=== PATIENT | female | born 1995 | race American Indian/Alaskan Native ===

== ENCOUNTER 2020-09-17 22:03 | Emergency (ER) | payer SELFPAY ==
[2020-09-17] MEDS ORDERED: KETOROLAC 30 MG/1 ML INJ IV ONE (22:40)
[2020-09-17] MEDS ORDERED: ONDANSETRON 4 MG/2 ML INJ IV ONE (22:40)
--- NOTE | 2020-09-17 22:46 | Event Note ---
ED Screening Note Date of service: 09/17/20 Time: 22:30 ED Screening Note: Patient is a A0 25-year-old -H[place] female with no past medical history presents to the ED with complaint of acute onset persistent severe diffuse low abdominal pain with nausea for the last 12 hours. Patient states that she has been taking [id number] medication with no relief. Patient states that the pain is crampy, sharp and constant. Patient states that her LMP was August 11, 2020 and that she has not had her menstrual cycle in September although she states that menstrual cycle is usually irregular ever since she stopped using contraceptives 3 months ago. Patient denies dizziness, syncope, vaginal bleeding, vaginal discharge, dysuria, urinary frequency and urgency, fever, chills, dyspareunia, low back pain, chest pain and shortness of breath or diarrhea and vomiting. This initial assessment/diagnostic orders/clinical plan/treatment(s) is/are subject to change based on patients health status, clinical progression and re- assessment by fellow clinical providers in the ED. Further treatment and workup at subsequent clinical providers discretion. Patient/guardian urged not to elope from the ED as their condition may be serious if not clinically assessed and managed. Initial orders include: CBC, CMP, UA, hCG serum, lipase, CT abdomen pelvis with contrast
[2020-09-17 23:38] LABS: Basophils # (Auto) 0.1 K/mm3 (0.0-0.1); Basophils % (Auto) 0.8 % (0.0-1.8); Eosinophils # (Auto) 0.3 K/mm3 (0.0-0.4); Eosinophils % (Auto) 3.7 % (0.0-4.3); Hematocrit 34.5 % (30.3-42.9); Lymphocytes # (Auto) 3.8 K/mm3 (1.2-5.4); Lymphocytes % (Auto) 49.6 % (13.4-35.0); Mean Corpuscular HGB Conc 35 % (30-34); Mean Corpuscular Volume 82 fl (79-97); Monocytes # (Auto) 0.7 K/mm3 (0.0-0.8); Monocytes % (Auto) 8.8 % (0.0-7.3); Platelet Count 219 K/mm3 (140-440); Red Blood Count 4.24 M/mm3 (3.65-5.03); Red Cell Distribution Width 13.6 % (13.2-15.2)
[2020-09-17 23:44] LABS: Bilirubin,Urine NEG (Negative); Blood,Urine NEG (Negative); Color,Urine Yellow (Yellow); Mucus,Urine 3+ /HPF
[2020-09-18 00:34] LABS: Alanine Aminotransferase 38 units/L (7-56); Blood Urea Nitrogen 7 mg/dL (7-17); Calcium 9.2 mg/dL (8.4-10.2); Hemolysis Index 15
[2020-09-18 00:35] LABS: BUN/Creatinine Ratio 12
--- NOTE | 2020-09-18 00:43 | Emergency Department Report ---
ED General Adult HPI - General Chief complaint: Abdominal Pain Stated complaint: ABD PAIN Time Seen by Provider: 09/18/20 00:37 Source: patient Mode of arrival: Ambulatory Limitations: No Limitations - History of Present Illness Initial comments: Patient presents to the emergency department the chief complaint of pelvic cramping that started this morning. Patient states that she also recently found out that she is . This to be the patient's third she has had 2 live births. Patient denies any vaginal discharge or vaginal bleeding. Patient denies chest pain, shortness breath, or headache. -: Sudden Location: pelvis Radiation: non-radiation Severity scale (0 -10): 3 Quality: other (Cramping) Consistency: constant Improves with: none Worsens with: none Associated Symptoms: denies other symptoms Treatments Prior to Arrival: none - Related Data Allergies Allergy/AdvReac Type Severity Reaction Status Date / Time No Known Allergies Allergy Unverified 09/17/20 22:52 ED Review of Systems ROS: Stated complaint: ABD PAIN Other details as noted in HPI Constitutional: denies: chills, fever Eyes: denies: eye pain, eye discharge, vision change ENT: denies: ear pain, throat pain Respiratory: denies: cough, shortness of breath, wheezing Cardiovascular: denies: chest pain, palpitations Endocrine: no symptoms reported Gastrointestinal: denies: abdominal pain, nausea, diarrhea Genitourinary: other (Pelvic pain). denies: urgency, dysuria, discharge Musculoskeletal: denies: back pain, joint swelling, arthralgia Skin: denies: rash, lesions Neurological: denies: headache, weakness, paresthesias Psychiatric: denies: anxiety, depression Hematological/Lymphatic: denies: easy bleeding, easy bruising ED Past Medical Hx - Past Medical History Previous Medical History?: No - Surgical History Past Surgical History?: No - Social History Smoking Status: Never Smoker Substance Use Type: None ED Physical Exam - General Limitations: No Limitations General appearance: alert, in no apparent distress - Head Head exam: Present: atraumatic, normocephalic - Eye Eye exam: Present: normal appearance, PERRL, EOMI - ENT ENT exam: Present: mucous membranes moist - Neck Neck exam: Present: normal inspection - Respiratory Respiratory exam: Present: normal lung sounds bilaterally. Absent: respiratory distress - Cardiovascular Cardiovascular Exam: Present: regular rate, normal rhythm. Absent: systolic murmur, diastolic murmur, rubs, gallop - GI/Abdominal GI/Abdominal exam: Present: soft, normal bowel sounds. Absent: distended, tenderness - External exam: Present: other (Deferred) Speculum exam: Present: other (Deferred) Bi-manual exam: Present: other (Deferred) - Extremities Exam Extremities exam: Present: normal inspection - Back Exam Back exam: Present: normal inspection - Neurological Exam Neurological exam: Present: alert, oriented X3, CN II-XII intact. Absent: motor sensory deficit - Psychiatric Psychiatric exam: Present: normal affect, normal mood - Skin Skin exam: Present: warm, dry, intact, normal color. Absent: rash ED Course Vital Signs 09/17/20 22:36 Temperature 98.0 F Pulse Rate 80 Respiratory 18 Rate Blood Pressure 102/34 O2 Sat by Pulse 99 Oximetry ED Medical Decision Making - Lab Data Result diagrams: 09/17/20 22:51 09/17/20 22:51 Lab Results 09/17/20 09/17/20 09/17/20 Range/Units 22:42 22:51 22:51 WBC 7.7 (4.5-11.0) K/mm3 RBC 4.24 (3.65-5.03) M/mm3 Hgb 12.0 (10.1-14.3) gm/dl Hct 34.5 (30.3-42.9) % MCV 82 (79-97) fl MCH 28 (28-32) pg MCHC 35 H (30-34) % RDW 13.6 (13.2-15.2) % Plt Count 219 (140-440) K/mm3 Lymph % (Auto) 49.6 H (13.4-35.0) % [place] % (Auto) 8.8 H (0.0-7.3) % Eos % (Auto) 3.7 (0.0-4.3) % Baso % (Auto) 0.8 (0.0-1.8) % Lymph # (Auto) 3.8 (1.2-5.4) K/mm3 [place] # (Auto) 0.7 (0.0-0.8) K/mm3 Eos # (Auto) 0.3 (0.0-0.4) K/mm3 Baso # (Auto) 0.1 (0.0-0.1) K/mm3 Seg Neutrophils % 37.1 L (40.0-70.0) % Seg Neutrophils # 2.8 (1.8-7.7) K/mm3 Sodium 140 (137-145) mmol/L Potassium 3.8 (3.6-5.0) mmol/L Chloride 107.2 H (98-107) mmol/L Carbon Dioxide 23 (22-30) mmol/L Anion Gap 14 mmol/L BUN 7 (7-17) mg/dL Creatinine 0.6 (0.6-1.2) mg/dL Estimated GFR > 60 ml/min BUN/Creatinine Ratio 12 % Glucose 78 (65-100) mg/dL Calcium 9.2 (8.4-10.2) mg/dL Total Bilirubin 0.60 (0.1-1.2) mg/dL AST 33 (5-40) units/L ALT 38 (7-56) units/L Alkaline Phosphatase 83 (35-129) units/L Total Protein 7.0 (6.3-8.2) g/dL Albumin 4.0 (3.9-5) g/dL Albumin/Globulin Ratio 1.3 % Lipase (13-60) units/L HCG, Qual (Negative) Urine Color Yellow (Yellow) Urine Turbidity Slightly-cloudy (Clear) Urine pH 6.0 (5.0-7.0) Ur Specific [place] 1.029 (1.003-1.030) Urine Protein 30 mg/dl (Negative) mg/dL Urine Glucose (UA) Neg (Negative) mg/dL Urine Ketones Neg (Negative) mg/dL Urine Blood Neg (Negative) Urine Nitrite Neg (Negative) Urine Bilirubin Neg (Negative) Urine Urobilinogen 4.0 (<2.0) mg/dL Ur Leukocyte Esterase Tr (Negative) Urine WBC (Auto) 2.0 (0.0-6.0) /HPF Urine RBC (Auto) 1.0 (0.0-6.0) /HPF U Epithel Cells (Auto) 8.0 (0-13.0) /HPF Urine Mucus 3+ /HPF 09/17/20 09/17/20 Range/Units 22:51 22:51 WBC (4.5-11.0) K/mm3 RBC (3.65-5.03) M/mm3 Hgb (10.1-14.3) gm/dl Hct (30.3-42.9) % MCV (79-97) fl MCH (28-32) pg MCHC (30-34) % RDW (13.2-15.2) % Plt Count (140-440) K/mm3 Lymph % (Auto) (13.4-35.0) % [place] % (Auto) (0.0-7.3) % Eos % (Auto) (0.0-4.3) % Baso % (Auto) (0.0-1.8) % Lymph # (Auto) (1.2-5.4) K/mm3 [place] # (Auto) (0.0-0.8) K/mm3 Eos # (Auto) (0.0-0.4) K/mm3 Baso # (Auto) (0.0-0.1) K/mm3 Seg Neutrophils % (40.0-70.0) % Seg Neutrophils # (1.8-7.7) K/mm3 Sodium (137-145) mmol/L Potassium (3.6-5.0) mmol/L Chloride (98-107) mmol/L Carbon Dioxide (22-30) mmol/L Anion Gap mmol/L BUN (7-17) mg/dL Creatinine (0.6-1.2) mg/dL Estimated GFR ml/min BUN/Creatinine Ratio % Glucose (65-100) mg/dL Calcium (8.4-10.2) mg/dL Total Bilirubin (0.1-1.2) mg/dL AST (5-40) units/L ALT (7-56) units/L Alkaline Phosphatase (35-129) units/L Total Protein (6.3-8.2) g/dL Albumin (3.9-5) g/dL Albumin/Globulin Ratio % Lipase 14 (13-60) units/L HCG, Qual Positive (Negative) Urine Color (Yellow) Urine Turbidity (Clear) Urine pH (5.0-7.0) Ur Specific [place] (1.003-1.030) Urine Protein (Negative) mg/dL Urine Glucose (UA) (Negative) mg/dL Urine Ketones (Negative) mg/dL Urine Blood (Negative) Urine Nitrite (Negative) Urine Bilirubin (Negative) Urine Urobilinogen (<2.0) mg/dL Ur Leukocyte Esterase (Negative) Urine WBC (Auto) (0.0-6.0) /HPF Urine RBC (Auto) (0.0-6.0) /HPF U Epithel Cells (Auto) (0-13.0) /HPF Urine Mucus /HPF - Radiology Data Radiology results: report reviewed - Medical Decision Making Results discussed with patient Critical care attestation.: If time is entered above; I have spent that time in minutes in the direct care o f this critically ill patient, excluding procedure time. ED Disposition Clinical Impression: Pelvic pain during Disposition: - TO HOME OR SELFCARE Is pt being admited?: No Does the pt Need Aspirin: No Condition: Stable Instructions: Abdominal Pain (ED), Pelvic Pain, Female Additional Instructions: Return if worse or if there is vaginal bleeding or discharge Referrals: ZANE HONG MD [Primary Care Provider] - 3-5 Days RAYA MATA MD [Staff Physician] - 3-5 Days [facility] [Provider Group] - 3-5 Days Time of Disposition: 01:21
--- NOTE | 2020-09-18 01:17 | Ultrasound Report ---
ULTRASOUND OBSTETRIC INDICATION / CLINICAL INFORMATION: pelvic pain. Clinical Gestational Age (GA) in weeks, days: 5, 3 TECHNIQUE: Transabdominal. COMPARISON: None available. FINDINGS: GESTATIONAL SAC: Possible tiny intrauterine gestational sac measuring 1.0 cm corresponding to 5, 5 we eks, days. YOLK SAC: Not visualized. EMBRYO/FETUS: Not visualized. ADNEXA: 2.2 cm physiologic cyst of the right ovary. Left adnexa appears within normal limits. FREE FLUID: None. ADDITIONAL FINDINGS: None. IMPRESSION: 1. Possible very early intrauterine with estimated sonographic age of 5, 5 weeks, days. No yolk sac or pole identified. Signer Name: Josue Castro MD Signed: 09/18/2020 1:13 AM Workstation Name: [id number]
[2020-09-18 01:42] VITALS: BP 107/60
== END 2020-09-18 01:30 | disposition home or self-care (01) ==
LOC: ED 22:03
DX: O26.891 Other specified pregnancy related conditions, first trimester (principal); R10.2 Pelvic and perineal pain; Z3A.01 Less than 8 weeks gestation of pregnancy
CPT/HCPCS: 36415; 76801; 80053; 81001; 83690; 84702; 84703; 85025

== ENCOUNTER 2020-10-06 17:12 | Emergency (ER) | payer MEDICAID ==
--- NOTE | 2020-10-06 18:00 | Emergency Department Report ---
ED Female HPI - General Chief complaint: Vaginal Bleeding Stated complaint: 7WKS BLEEDING AND CRAMPING Time Seen by Provider: 10/06/20 17:55 Source: patient Mode of arrival: Ambulatory Limitations: No Limitations - History of Present Illness Initial comments: 7 weeks female presents to the ED c/o of a few day history of pelvic cramping and now vaginal bleeding that started today. No trauma, dsysuria, fever , chills, sweats. MD Complaint: vaginal bleeding, pelvic pain Location: suprapubic Radiation: non-radiating Severity: mild, moderate Quality: cramping Consistency: constant Improves with: none Worsens with: none Are you Now?: Yes Associated Symptoms: nausea/vomiting. denies: headaches, loss of appetite, dysuria, hematuria, shortness of breath - Related Data Sexually active: Yes Allergies Allergy/AdvReac Type Severity Reaction Status Date / Time No Known Allergies Allergy Unverified 09/17/20 22:52 ED Review of Systems ROS: Stated complaint: 7WKS BLEEDING AND CRAMPING Other details as noted in HPI Comment: All other systems reviewed and negative ED Past Medical Hx - Past Medical History Previous Medical History?: No - Surgical History Past Surgical History?: No - Social History Smoking Status: Never Smoker Substance Use Type: None ED Physical Exam - General Limitations: No Limitations General appearance: alert, in no apparent distress - Head Head exam: Present: atraumatic, normocephalic - Eye Eye exam: Present: normal appearance, PERRL, EOMI Pupils: Present: normal accommodation - ENT ENT exam: Present: normal exam, mucous membranes moist - Neck Neck exam: Present: normal inspection, full ROM - Respiratory Respiratory exam: Present: normal lung sounds bilaterally. Absent: respiratory distress, rales, rhonchi - Cardiovascular Cardiovascular Exam: Present: regular rate, normal rhythm. Absent: systolic murmur, diastolic murmur, rubs, gallop - GI/Abdominal GI/Abdominal exam: Present: soft, normal bowel sounds - Extremities Exam Extremities exam: Present: normal inspection - Back Exam Back exam: Present: normal inspection - Neurological Exam Neurological exam: Present: alert, oriented X3 - Psychiatric Psychiatric exam: Present: normal affect, normal mood - Skin Skin exam: Present: warm, dry, intact, normal color. Absent: rash ED Course Vital Signs 10/06/20 17:52 Temperature 98 F Pulse Rate 80 Respiratory 16 Rate Blood Pressure 125/50 [Right] O2 Sat by Pulse 97 Oximetry ED Medical Decision Making - Lab Data Result diagrams: 10/06/20 18:59 - Radiology Data Radiology results: report reviewed [facility] [address] [place] [address] Ultrasound Report Signed Patient: DONOVAN CADE MR#: [id number] : 1995 Acct:[id number] Age/Sex: 25 / F ADM Date: 10/06/20 Loc: ED Attending Dr: Ordering Physician: ERASTO KIRKLAND Date of Service: 10/06/20 Procedure(s): US OB <= 14 weeks fetus Accession Number(s): [id number] cc: ERASTO KIRKLAND US OB <= 14 weeks fetus INDICATION / CLINICAL INFOR MATION: Vaginal bleeding. COMPARISON: 09/17/2020 FINDINGS: Single live fetus of approximately 8 weeks 0 days gestational age is seen in the uterus. heart rate is 165. A small cyst is seen in the right ovary. The left ovary is normal. IMPRESSION: Single live fetus of approximately 8 weeks 0 days gestational age in the uterus with heart rate 165 Signer Name: Brendan Acuña MD FACR Signed: 10/06/2020 8:04 PM Workstation Name: [id number] Transcribed By: MS Dictated By: Brendan Acuña MD Electronically Authenticated By: Brendan Acuña MD Signed Date/Time: 10/06/202003 DD/ 02 TD/TT: - Medical Decision Making This patient presents with vaginal bleeding in the first trimester, differential diagnosis includes ectopic , IUP, month threatened/inevitable , along with a completed . ED work-up patient's presentation not consistent with an ectopic , molar , life threatening coagulopathy, serious bacterial infection, central process or other emergency. Patient's bleeding is most likely secondary to, fibroids, or the nonemergent cause of abnormal uterine bleeding. Patient is HDS and without a history of coagulopathy or infectious symptoms. The ultrasound does reveal an IUP at 8 weeks with an elevated hCG quant Disposition: We will discharge home with return precautions and instructions for prompt [facility] follow-up Critical care attestation.: If time is entered above; I have spent that time in minutes in the direct care of this critically ill patient, excluding procedure time. ED Disposition Clinical Impression: Vaginal bleeding affecting early Disposition: DC-01 TO HOME OR SELFCARE Is pt being admited?: No Does the pt Need Aspirin: No Condition: Stable Instructions: Vaginal Bleeding During , First Trimester, Activity Restriction During , Threatened Miscarriage Referrals: EBENEZER CONNOR NP [Primary Care Provider] - 3-5 Days [facility] [Provider Group] - 3-5 Days [facility] [Provider Group] - 3-5 Days
[2020-10-06 18:48] LABS: Bilirubin,Urine NEG (Negative); Blood,Urine NEG (Negative); Color,Urine Yellow (Yellow); Mucus,Urine 3+ /HPF
[2020-10-06 19:16] LABS: Basophils # (Auto) 0.1 K/mm3 (0.0-0.1); Basophils % (Auto) 0.8 % (0.0-1.8); Eosinophils # (Auto) 0.1 K/mm3 (0.0-0.4); Eosinophils % (Auto) 2.1 % (0.0-4.3); Hematocrit 35.4 % (30.3-42.9); Hemoglobin 12.4 gm/dl (10.1-14.3); Lymphocytes # (Auto) 2.9 K/mm3 (1.2-5.4); Lymphocytes % (Auto) 46.7 % (13.4-35.0); Mean Corpuscular HGB Conc 35 % (30-34); Mean Corpuscular Volume 82 fl (79-97); Monocytes # (Auto) 0.6 K/mm3 (0.0-0.8); Monocytes % (Auto) 10.3 % (0.0-7.3); Platelet Count 216 K/mm3 (140-440); Red Cell Distribution Width 13.9 % (13.2-15.2)
[2020-10-06 19:29] LABS: INR 1.04 (0.87-1.13)
--- NOTE | 2020-10-06 20:09 | Ultrasound Report ---
US OB <= 14 weeks fetus INDICATION / CLINICAL INFORMATION: Vaginal bleeding. COMPARISON: 09/17/2020 FINDINGS: Single live fetus of approximately 8 weeks 0 days gestational age is seen in the uterus. heart rate is 165. A small cyst is seen in the right ovary. The left ovary is normal. IMPRESSION: Single live fetus of approximately 8 weeks 0 days gestational age in the uterus with heart rate 165 Signer Name: Brendan Acuña MD FACR Signed: 10/06/2020 8:04 PM Workstation Name: [id number]
[2020-10-07 02:26] VITALS: BP 125/43
== END 2020-10-06 21:55 | disposition home or self-care (01) ==
LOC: ED 17:12
DX: O20.9 Hemorrhage in early pregnancy, unspecified (principal); Z3A.01 Less than 8 weeks gestation of pregnancy
CPT/HCPCS: 36415; 76801; 81001; 84702; 85025; 85610; 86900; 86901

== ENCOUNTER 2021-02-16 22:26 | Outpatient (CLI) | payer MEDICAID ==
[2021-02-16] MEDS ORDERED: LACTATED RINGERS 1,000 ML IV ONE (23:06)
[2021-02-16 23:30] LABS: Bacteria,Urine 1+ /HPF (Negative); Bilirubin,Urine NEG (Negative); Blood,Urine NEG (Negative); Color,Urine Yellow (Yellow); Mucus,Urine 2+ /HPF
[2021-02-16 23:33] VITALS: BP 101/57
[2021-02-16] MEDS ORDERED: TERBUTALINE 1 MG/1 ML INJ SUB-Q SCH (23:45)
[2021-02-16] MEDS ORDERED: NITROFURANTOIN MONOHYD/M-CRYST 100 MG CAP PO ONE (23:59)
== END 2021-02-17 00:06 | disposition home or self-care (01) ==
LOC: TRG 22:26 → APU 22:45 → TRG 02-17 00:06
DX: Z34.92 Encounter for supervision of normal pregnancy, unspecified, second trimester (principal); Z3A.27 27 weeks gestation of pregnancy
CPT/HCPCS: 59025; 81001